=== PATIENT | female | born 1985 ===

== ENCOUNTER 2021-08-15 09:24 | Emergency (ER) | payer OTHER ==
[~2021-08-15] VITALS: Ht 157.5 cm; Wt 55.3 kg
[~2021-08-15 09:24] MED LIST: DURICEF PO
[2021-08-15] MEDS ORDERED: APLENZIN174 MG (09:36)
[2021-08-15] MEDS ORDERED: BENADRYL25 MG PO (11:33)
[2021-08-15] MEDS ORDERED: ZYRTEC10 M3 PO (11:33)
== END 2021-08-15 11:48 | disposition home or self-care (01) ==
LOC: ER 09:24
DX: T78.40XA Allergy, unspecified, initial encounter (principal); X58.XXXA Exposure to other specified factors, initial encounter